=== PATIENT | female | born 1975 | race Caucasian/White ===

== ENCOUNTER 2016-11-16 12:16 | Emergency (ER) | payer OTHER ==
[2016-11-16 12:29] VITALS: BP 113/79; PULSE 90; TEMP 99.1; BMI 29.7
--- NOTE | 2016-11-16 12:38 | PDOC ---
History of Present Illness - General Chief Complaint: Cold Symptoms Stated Complaint: sore throat Time Seen by Provider: 11/16/16 12:29 History Source: Patient Exam Limitations: No Limitations - History of Present Illness Initial Comments: 11/16/16 12:35 41 y/o female with cough, congestion for 2 days. Sore throat as well, after getting a B12 shot in her doctor's office 2 days ago. No fever or chills. No SOB or traveling. Some chest pain with coughing. No leg pain. Taking OTC medications that are not working. Hx of asthma, but not bothering her at this time. Timing/Duration: reports: intermittent Severity: reports: mild Associated Symptoms: reports: chest pain/soreness, cough, nasal congestion, sore throat. denies: fever/chills, headache, nasal drainage, shortness of breath, sinus infection Past History - Past Medical History Allergies/Adverse Reactions: Allergies Allergy/AdvReac Type Severity Reaction Status Date / Time No Known Allergies Allergy Verified 11/16/16 12:22 Home Medications: Ambulatory Orders Levothyroxine [Synthroid -] 125 mcg PO DAILY 10/03/15 Azithromycin [Zithromax -] 250 mg PO UTDICT #6 tab 11/16/16 Cyclobenzaprine HCl [Flexeril 10 mg] 10 mg PO DAILY PRN 11/16/16 Asthma: Yes Psychiatric Problems: Yes (ANXIETY.) Thyroid Disease: Yes - Surgical History Abdominal Surgery: Yes Cholecystectomy: Yes - Family Disease History Family Disease History: Diabetes: Father - Psycho/Social/Smoking Cessation Hx Anxiety: Yes Suicidal Ideation: No Smoking History: Former smoker Have you smoked in the past 12 months: No Number of Cigarettes Smoked Daily: 3 If you are a former smoker, when did you quit?: 2 YRS AGO Hx Alcohol Use: Yes (SOCIAL) Drug/Substance Use Hx: No Substance Use Type: None Review of Systems - Review of Systems Able to Perform ROS?: Yes Is the patient limited Syrian proficient: No Constitutional: No: Chills, Fever HEENTM: Yes: Throat Pain. No: Difficulty Swallowing Respiratory: Yes: Cough. No: Shortness of Breath Cardiac (ROS): Yes: Chest Pain. No: Palpitations ABD/GI: No: Nausea, Vomiting Neurological: No: Headache Psychiatric: No: Anxiety All Other Systems: Reviewed and Negative *Physical Exam - Vital Signs Last Vital Signs Temp Pulse Resp BP Pulse Ox 99.1 F 90 18 113/79 98 11/16/16 12:16 11/16/16 12:16 11/16/16 12:16 11/16/16 12:16 11/16/16 12:16 - Physical Exam General Appearance: Yes: Nourished, Appropriately Dressed. No: Apparent Distress HEENT: positive: EOMI, IRWIN, Normal ENT Inspection, Normal Voice. negative: Pharynx Normal (mild erythema of pharynx, no exudates noted) Neck: positive: Trachea midline, Normal Thyroid, Supple. negative: Tender, Rigid, Carotid bruit Respiratory/Chest: positive: Lungs Clear, Normal Breath Sounds. negative: Chest Tender (non reproducible chest pain on palpation), Respiratory Distress Cardiovascular: positive: Regular Rhythm, Regular Rate, S1, S2. negative: Edema , JVD, Murmur Vascular Pulses: Femoral (R): 4+, Femoral (L): 4+, Carotid (R): 4+, Carotid (L) : 4+, Dorsalis-Pedis (R): 4+, Doralis-Pedis (L): 4+ Gastrointestinal/Abdominal: positive: Normal Bowel Sounds, Flat, Soft. negative : Tender, Organomegaly, Pulsatile Mass Lymphatic: negative: Adenopathy, Tenderness, Other Musculoskeletal: positive: Normal Inspection. negative: CVA Tenderness Extremity: positive: Normal Capillary Refill, Normal Inspection, Normal Range of Motion. 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 Will check EKG and discharge home on Z-pack Patient is in agreement with plan EKG NSR *DC/Admit/Observation/Transfer Diagnosis at time of Disposition: Acute costochondritis Upper respiratory tract infection Qualifiers: URI type: unspecified viral URI Qualified Code(s): J06.9 - Acute upper respiratory infection, unspecified; B97.89 - Other viral agents as the cause of diseases classified elsewhere - Discharge Dispostion Disposition: HOME Condition at time of disposition: Good Admit: No - Patient Instructions Printed Discharge Instructions: Acute Bronchitis, DI for Costochondritis Additional Instructions: Motrin, rest, Robitussin as needed Continue inhaler for asthma as needed Z-pack as directed If worsen return to ER
--- NOTE | 2016-11-17 18:18 | EKG ---
Test Reason : Blood Pressure : / mmHG Vent. Rate : 085 BPM Atrial Rate : 085 BPM P-R Int : 168 ms QRS Dur : 096 ms QT Int : 348 ms P-R-T Axes : 066 063 058 degrees QTc Int : 414 ms NORMAL SINUS RHYTHM WHEN COMPARED WITH ECG OF 03-OCT-2015 12:01, NO SIGNIFICANT CHANGE WAS FOUND Confirmed by MD DOW MARJORY ([id number]) on 11/17/2016 6:18:01 PM Referred By: JODEE OWEN Confirmed By:GADIEL DOW MD
== END 2016-11-16 13:00 | disposition home or self-care (01) ==
LOC: FER 12:16
DX: J06.9 Acute upper respiratory infection, unspecified (principal); B97.89 Other viral agents as the cause of diseases classified elsewhere; M94.0 Chondrocostal junction syndrome [Tietze]; J45.909 Unspecified asthma, uncomplicated; F41.9 Anxiety disorder, unspecified; E07.9 Disorder of thyroid, unspecified; Z87.891 Personal history of nicotine dependence
CPT/HCPCS: 93005; 99284-25

== ENCOUNTER 2017-12-14 13:48 | Emergency (ER) | payer OTHER ==
[2017-12-14] MEDS ORDERED: SODIUM CHLORIDE 1,000 ML IV STA (13:55)
[2017-12-14] MEDS ORDERED: ONDANSETRON 4 MG/2 ML VIAL IVPUSH ONE (13:55)
[2017-12-14] MEDS ORDERED: FAMOTIDINE 20 MG/50 ML IVPB 20 MG/50 ML MG IVPB ONE ×2 (14:09→14:49)
[2017-12-14] MEDS ORDERED: MAG HYDROX/AL HYDROX/SIMETH 30 ML UNIT-DOSE CUP PO ONE (14:09)
[2017-12-14] MEDS ORDERED: ACETAMINOPHEN 325 MG TABLET (FP) PO ONE (14:12)
--- NOTE | 2017-12-14 14:18 | PDOC ---
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 In her usual state of health this morning, ate breakfast and took her morning meds (synthroid, pepcid). While at work, c/o sharp left sided abdominal pain f/ b anxiety, hyperventilating, feeling flushed and sweaty, numbness to legs, where episode lasted 10 minutes, since resolved; no syncope. +nausea and NBNB emesis, loose nonbloody stools prior to episode. No fevers or chills, cp or sob , cough, weakness, urinary sx, urgency/frequency, back or flank pain, leg swelling. Denies , LMP 3 weeks ago and normal. No ETOH or tobacco use; +cannibis daily. Last EGD/colonoscopy in September 2017, awaiting to be seen by GI next week for appointment as followup. no changes or new medications. no chronic nsaid use. GI: Dr. Ventura - appointment early next week for followup; similar episodes of left sided abdominal pain, awaiting results of EGD/colonoscopy. 12/14/17 14:55 12/14/17 14:56 Past History - Past Medical History Allergies/Adverse Reactions: Allergies Allergy/AdvReac Type Severity Reaction Status Date / Time No Known Allergies Allergy Verified 12/14/17 13:49 Home Medications: Ambulatory Orders Levothyroxine [Synthroid -] 125 mcg PO DAILY 10/03/15 Cyclobenzaprine HCl [Flexeril 10 mg] 10 mg PO DAILY PRN 11/16/16 Albuterol Sulfate Inhaler - [Ventolin HFA Inhaler -] 1 - 2 inh PO PRN PRN Famotidine [Pepcid] 20 mg PO DAILY 12/14/17 Ondansetron [Zofran Odt -] 4 mg SL TID PRN #9 od.tablet 12/14/17 Asthma: Yes Psychiatric Problems: Yes (ANXIETY.) Thyroid Disease: Yes - Surgical History Abdominal Surgery: Yes Cholecystectomy: Yes - Family Disease History Family Disease History: Diabetes: Father - Suicide/Smoking/Psychosocial Hx Smoking History: Former smoker Have you smoked in the past 12 months: No Number of Cigarettes Smoked Daily: 3 If you are a former smoker, when did you quit?: 2 YRS AGO Hx Alcohol Use: Yes (SOCIAL) Drug/Substance Use Hx: No Substance Use Type: None Abd/GI Specific PMHX - Complaint Specific PMHX Colitis: No Diverticulitis: No Gall Bladder Disease: Yes (cholecystectomy) GERD: Yes Review of Systems - Review of Systems Able to Perform ROS?: Yes Comments:: 12/14/17 14:56 GENERAL/CONSTITUTIONAL: No fever or chills. No weakness. + sweats. HEAD, EYES, EARS, NOSE AND THROAT: No change in vision or hearing. No ear pain or discharge. No sore throat or mouth pain. No difficulty swallowing.. No congestion. CARDIOVASCULAR: No chest pain or palpitations, syncope or edema. RESPIRATORY: No SOB, cough, wheezing, or hemoptysis. GASTROINTESTINAL +abdominal pain, + nausea/vomiting. +loose stools. No constipation. No bloody stools. GENITOURINARY: No hematuria, dysuria, frequency, urgency or other changes. MUSCULOSKELETAL: No joint or muscle swelling or pain. No neck or back pain. SKIN: No rash or changes in skin color or lesions. NEUROLOGIC: No headache, vertigo, loss of consciousness, or change in strength, no weakness. +leg numbness bilaterally ENDOCRINE: No increased thirst. No appetite change HEMATOLOGIC/LYMPHATIC: No anemia, easy bruising/bleeding, or history of blood clots. ALLERGIC/IMMUNOLOGIC: No allergies or skin changes. All other systems reviewed and negative, or as documented in HPI. *Physical Exam - Physical Exam Comments: 12/14/17 14:59 General: Well appearing, awake and alert, NAD. HEENT: NCAT, PERRL, EOMI, clear conjunctiva, anicteric, moist mucus membranes, clear oropharynx, no oral lesions.. Neck: neck supple, FROM Chest: no chest wall tenderness Lungs: CTAB, normal and even respirations, no respiratory distress Heart: RRR, no murmurs, 2+ peripheral pulses throughout, no peripheral edema Abdomen: soft, normal inspection, +LUQ tenderness, no peritoneal signs. No CVAT Back: nontender, normal inspection and ROM MSK: no edema, CASANOVA x4, ROM intact. normal bulk and tone. Neuro: alert, oriented appropriately; no focal neurologic deficits. Skin: warm and well perfused, cap refill <2 sec, normal color ED Treatment Course - LABORATORY CBC & Chemistry Diagram: 12/14/17 14:44 12/14/17 14:44 Medical Decision Making - Medical Decision Making 12/14/17 15:00 42 YOF with h/o GERD and hypothyroid, presenting with LUQ pain, since resolving today. DDx abdominal pain: GERD, PUD, esophageal spasm, pancreatitis, hepatitis, constipation, colitis, gastroenteritis, UTI, pyelonephritis,, hernia, appendicitis, diverticulitis, . Considered but clinically doubt based on HPI and PE: no urinary sx to suggest renal colic or UTI, so defer UA testing. Vital signs reviewed, wnl. no fever. Plan: CBC, CMP, Upreg CXR; interventions: mylanta, pepcid, tylenol, IVF, zofran. Prior notes reviewed, including admissions, discharges and consultations. laboratory results and imaging reviewed, basic labs and lytes wnl, notable for normal LFTs, pending lipase, Upreg neg. clinically improved, well appearing, nontoxic, tolerating PO intake. +appetite and hungry, eager for discharge. questions answered, reassurance provided, instructions as below. Pt to be discharged in stable condition. Patient and family made aware of impression and plan, return precautions discussed (including but not limited to worsening pain or symptoms), fevers, or signs of infection, chest pain, respiratory distress, inability to tolerate oral intake, dehydration, syncope, or neurologic changes). Follow up with PMD and/or specialist as recommended, follow up information provided - Dr. Ventura next Sunday for follow up appt s/p EGD/colonoscopy, take medications as instructed for duration of time, rx zofran PRN for nausea, c/w pepcid and OTC mylanta/maalox.. continue with supportive care, avoid triggers and precipitants. 12/14/17 16:00 12/14/17 16:45 *DC/Admit/Observation/Transfer Diagnosis at time of Disposition: Abdominal pain Qualifiers: Abdominal location: left upper quadrant Qualified Code(s): R10.12 - Left upper quadrant pain - Discharge Dispostion Disposition: HOME Condition at time of disposition: Improved Decision to Admit order: No - Prescriptions Prescriptions: Ondansetron [Zofran Odt -] 4 mg SL TID PRN #9 od.tablet PRN Reason: Nausea - Referrals Referrals: Jose Ventura MD [Staff Physician] - - Patient Instructions Printed Discharge Instructions: DI for Abdominal Pain-Adult Additional Instructions: take zofran as needed for your nausea, three times a day. continue with pepcid. mylanta or maalox every 6 hours with food. follow up with Dr. Ventura as scheduled next week for your followup, your blood work reviewed and generally within normal results. return precautions for worsening symptoms including fevers, headache, vomiting, visual or hearing disturbances, abdominal pain, chest pain, shortness of breath, syncope, dehydration, inability to take things by mouth, altered mental status, or worsening concerning symptoms. - Post Discharge Activity Forms/Work/School Notes: Back to Work
[2017-12-14 14:43] VITALS: BP 112/79; PULSE 89; TEMP 98; BMI 29.6
[2017-12-14] MEDS ORDERED: ACETAMINOPHEN 325 MG TABLET (FP) ONE (14:48)
[2017-12-14] MEDS ORDERED: ONDANSETRON 4 MG/2 ML VIAL ONE (14:49)
[2017-12-14] MEDS ORDERED: MAG HYDROX/AL HYDROX/SIMETH 30 ML UNIT-DOSE CUP ONE (14:49)
[2017-12-14 15:27] LABS: BASO % 0.1 % (0-2.0); EOS % 0.6 % (0-4.5); HEMATOCRIT 40.7 % (32.4-45.2); HEMOGLOBIN 13.8 GM/dl (10.7-15.3); LYMPH % 11.4 % (8-40); MCH 30.7 pg (25.7-33.7); MCHC 33.9 g/dl (32.0-36.0); MEAN CELL VOLUME 90.5 fl (80-96); NEUT % 83.9 % (42.8-82.8); PLATELET COUNT 299 K/MM3 (134-434); RDW 12.7 % (11.6-15.6); WHITE BLOOD COUNT 7.8 K/mm3 (4.0-10.8)
[2017-12-14 15:34] LABS: ALBUMIN 3.9 g/dl (3.5-5.0); ALK PHOS 61 U/L (32-92); ANION GAP 6 (8-16); BILIRUBIN,TOTAL 0.6 mg/dl (0.2-1.0); BLOOD UREA NITROGEN 16 mg/dl (7-18); CALCIUM 9.1 mg/dl (8.4-10.2); CHLORIDE 104 mmol/L (98-107); CO2 24 mmol/L (22-28); CREATININE 0.8 mg/dl (0.6-1.3); GLUCOSE,RANDOM 89 mg/dl (74-106); POTASSIUM 4.1 mmol/L (3.5-5.1); SGOT/AST 21 U/L (10-42); SGPT/ALT 16 U/L (10-40); SODIUM 134 mmol/L (136-145); TOT PROT 6.6 g/dl (6.4-8.3)
[2017-12-14 16:42] LABS: LIPASE 137 U/L (73-393)
== END 2017-12-14 16:30 | disposition home or self-care (01) ==
LOC: FER 13:48
PROC: 3E033GC Introduction of Other Therapeutic Substance into Peripheral Vein, Percutaneous Approach (ICD-10-PCS; principal; 2017-12-14)
PROC: 3E0337Z Introduction of Electrolytic and Water Balance Substance into Peripheral Vein, Percutaneous Approach (ICD-10-PCS; 2017-12-14)
DX: R10.12 Left upper quadrant pain (principal); E03.9 Hypothyroidism, unspecified; K21.9 Gastro-esophageal reflux disease without esophagitis; J45.909 Unspecified asthma, uncomplicated; Z87.891 Personal history of nicotine dependence
CPT/HCPCS: 36415; 71045-TC-FY; 80053; 83690; 84703; 85025; 96361; 96365; 96375; 99283-25; J7030

== ENCOUNTER 2018-07-25 13:10 | Emergency (ER) | payer OTHER ==
--- NOTE | 2018-07-25 13:13 | PDOC ---
History of Present Illness <PamelaAlana - Last Filed: 07/25/18 16:42> - General History Source: Patient Exam Limitations: No Limitations - History of Present Illness Initial Comments: 07/25/18 13:36 42 year old female with PMH hypothyroidism, GERD presented to ED for right flank pain x5 days and periumbilical pain xtoday. Pt stated her right flank pain radiates down to her right groin, intermittent, stabbing. Pt stated her umbilical pain is constant. Pt denied fever, chills, nausea, vomiting, diarrhea , constipation, chest pain, shortness of breath. Pt was seen by her PCP And OBGYN Sunday for flank pain, had bilateral kidney US performed and was told it was normal, had UA done but has not had results. Allergies: NKDA Surgeries: cholecystectomy <KylieMaria - Last Filed: 07/25/18 16:50> - General Chief Complaint: Pain Stated Complaint: RT SIDE, ABD PAIN Time Seen by Provider: 07/25/18 13:13 Past History <Alana Santiago - Last Filed: 07/25/18 16:42> - Past Medical History Asthma: Yes COPD: No GI Disorders: Yes (H/O ACID REFLUX) Psychiatric Problems: Yes (ANXIETY.) Thyroid Disease: Yes - Surgical History Abdominal Surgery: Yes Cholecystectomy: Yes - Family Disease History Family Disease History: Diabetes: Father - Suicide/Smoking/Psychosocial Hx Smoking History: Former smoker Have you smoked in the past 12 months: No Number of Cigarettes Smoked Daily: 3 If you are a former smoker, when did you quit?: 2 YRS AGO Hx Alcohol Use: Yes (SOCIAL) Drug/Substance Use Hx: No Substance Use Type: None <KylieMaria - Last Filed: 07/25/18 16:50> - Past Medical History Allergies/Adverse Reactions: Allergies Allergy/AdvReac Type Severity Reaction Status Date / Time No Known Allergies Allergy Verified 07/25/18 13:13 Home Medications: Ambulatory Orders Levothyroxine [Synthroid -] 125 mcg PO DAILY 10/03/15 Cyclobenzaprine HCl [Flexeril 10 mg] 10 mg PO DAILY PRN 11/16/16 Famotidine [Pepcid] 20 mg PO DAILY 12/14/17 Review of Systems - Review of Systems Able to Perform ROS?: Yes Comments:: 07/25/18 13:37 General: denied fever, chills, night sweats, generalized weakness. HEENT: denied sore throat, rhinorrhea, ear pain. Heart: denied chest pain, palpitations, syncope, diaphoresis. Respiratory: denied shortness of breath, cough, sputum production, hemoptysis. Abdomen: admitted to abdominal pain. denied nausea, vomiting, diarrhea, constipation, blood in stool. : admitted to flank pain. denied dysuria, increased urinary frequency, hematuria, urinary incontinence. Back: denied back pain. Musculoskeletal: denied joint pain, muscle pain, joint swelling. Neurological: denied headache, dizziness, numbness, tingling, weakness. Skin: denied rash, laceration, abrasion. <Maria Espinal - Last Filed: 07/25/18 16:50> *Physical Exam - Vital Signs Last Vital Signs Temp Pulse Resp BP Pulse Ox 98.6 F 98 H 18 119/88 100 07/25/18 13:10 07/25/18 13:10 07/25/18 13:10 07/25/18 13:10 07/25/18 13:10 <Alana Santiago - Last Filed: 07/25/18 16:42> - Physical Exam Comments: 07/25/18 13:38 Constitutional: Well-nourished, Well-developed, appearing stated age. HEENT: head is normocephalic, atraumatic. EOMI. PERRLA. Neck: supple. Full ROM. Heart: regular rhythm. no murmurs, rubs or gallops. Lungs: clear to auscultation bilaterally. no crackles, rhonchi or wheezing. no stridor. Abdomen: soft, flat. mcburney's point nontender. tenderness to palpation of epigastrium, LUQ, LLQ. normal bowel sounds. no rebound, guarding, masses. Extremities: Peripheral pulses intact. No lower extremity edema. Neurological: CN 2-12 grossly intact. Moves all four extremities. Psych: awake, alert, oriented x3. Follows commands. Answers questions appropriately. <Maria Espinal - Last Filed: 07/25/18 16:50> Moderate Sedation - Procedure Monitoring Vital Signs: Procedure Monitoring Vital Signs Temperature 98.6 F 07/25/18 13:10 Pulse Rate 98 H 07/25/18 13:10 Respiratory Rate 18 07/25/18 13:10 Blood Pressure 119/88 07/25/18 13:10 O2 Sat by Pulse Oximetry (%) 100 07/25/18 13:10 <Alana Santiago - Last Filed: 07/25/18 16:42> ED Treatment Course - LABORATORY CBC & Chemistry Diagram: 07/25/18 13:39 07/25/18 13:39 - ADDITIONAL ORDERS Additional order review: Laboratory Results 07/25/18 07/25/18 07/25/18 13:47 13:47 13:39 Sodium 137 Potassium 3.9 Chloride 111 H Carbon Dioxide 23 Anion Gap 3 L BUN 13 Creatinine 0.7 Creat Clearance w eGFR > 60 Random Glucose 101 Calcium 8.8 Total Bilirubin 0.3 AST 23 ALT 18 Alkaline Phosphatase 73 Total Protein 6.8 Albumin 3.7 Urine Color Yellow Urine Appearance Cloudy Urine pH 5.5 Ur Specific [place] 1.010 Urine Protein Negative Urine Glucose (UA) Negative Urine Ketones Negative Urine Blood 3+ H Urine Nitrite Negative Urine Bilirubin Negative Urine Urobilinogen 0.2 Ur Leukocyte Esterase Negative Urine RBC 10-20 Urine WBC 0-2 Ur Epithelial Cells 1+ Urine HCG, Qual Negative 07/25/18 13:39 RBC 4.65 MCV 91.9 MCHC 32.5 RDW 12.1 MPV 8.0 Neutrophils % 66.4 Lymphocytes % 25.4 Monocytes % 6.5 Eosinophils % 1.5 Basophils % 0.2 - Medications Given in the ED: ED Medications Discontinued Medications Generic Name Dose Route Start Last Admin Trade Name Maribell PRN Reason Stop Dose Admin Ketorolac Tromethamine 30 mg 07/25/18 14:47 07/25/18 15:12 Toradol Injection - IVPUSH 07/25/18 14:48 30 mg ONCE ONE Administration <Alana Santiago - Last Filed: 07/25/18 16:42> - LABORATORY CBC & Chemistry Diagram: 07/25/18 13:39 07/25/18 13:39 <Maria Espinal - Last Filed: 07/25/18 16:50> Medical Decision Making - Medical Decision Making 07/25/18 13:39 42 year old female with above PMH presented to ED for right flank pain and periumbilical pain. Initial Vital Signs Temp Pulse Resp BP Pulse Ox 98.6 F 98 H 18 119/88 100 07/25/18 13:10 07/25/18 13:10 07/25/18 13:10 07/25/18 13:10 07/25/18 13:10 Afebrile. No tachycardia. No tachypnea. No hypotension. No hypoxia on room air. Labs ordered: CBC, CMP, lipase, UA/UC, urine testing Imaging ordered: CT abdomen/pelvis with contrast Medications ordered: none EKG performed at 1407: rate 73, regular rhythm, normal axis, normal intervals, no acute ST changes. 07/25/18 14:46 CBC WBC 6.5 K/mm3 (4.0-10.8) 07/25/18 13:39 RBC 4.65 M/mm3 (3.60-5.2) 07/25/18 13:39 Hgb 13.9 GM/dl (10.7-15.3) 07/25/18 13:39 Hct 42.8 % (32.4-45.2) 07/25/18 13:39 MCV 91.9 fl (80-96) 07/25/18 13:39 MCH 29.8 pg (25.7-33.7) 07/25/18 13:39 MCHC 32.5 g/dl (32.0-36.0) 07/25/18 13:39 RDW 12.1 % (11.6-15.6) 07/25/18 13:39 Plt Count 314 K/MM3 (134-434) 07/25/18 13:39 MPV 8.0 fl (7.5-11.1) 07/25/18 13:39 Absolute Neuts (auto) 4.3 K/mm3 07/25/18 13:39 Neutrophils % 66.4 % (42.8-82.8) 07/25/18 13:39 Lymphocytes % 25.4 % (8-40) 07/25/18 13:39 Monocytes % 6.5 % (3.8-10.2) 07/25/18 13:39 Eosinophils % 1.5 % (0-4.5) 07/25/18 13:39 Basophils % 0.2 % (0-2.0) 07/25/18 13:39 No leukocytosis. No anemia. Urine Test Results Urine Color Yellow 07/25/18 13:47 Urine Appearance Cloudy 07/25/18 13:47 Urine pH 5.5 (4.5-8) 07/25/18 13:47 Ur Specific [place] 1.010 (1.010-1.035) 07/25/18 13:47 Urine Protein Negative (NEGATIVE) 07/25/18 13:47 Urine Glucose (UA) Negative (NEGATIVE) 07/25/18 13:47 Urine Ketones Negative (NEGATIVE) 07/25/18 13:47 Urine Blood 3+ (NEGATIVE) H 07/25/18 13:47 Urine Nitrite Negative (NEGATIVE) 07/25/18 13:47 Urine Bilirubin Negative (NEGATIVE) 07/25/18 13:47 Ur Leukocyte Esterase Negative (NEGATIVE) 07/25/18 13:47 3+ blood. - Possible kidney stone No evidence of UTI. Urine testing negative. - Toradol 30 mg IV ordered CMP Sodium 137 mmol/L (136-145) 07/25/18 13:39 Potassium 3.9 mmol/L (3.5-5.1) 07/25/18 13:39 Chloride 111 mmol/L (98-107) H 07/25/18 13:39 Carbon Dioxide 23 mmol/L (21-32) 07/25/18 13:39 Anion Gap 3 MMOL/L (8-16) L 07/25/18 13:39 BUN 13 mg/dl (7-18) 07/25/18 13:39 Creatinine 0.7 mg/dl (0.55-1.3) 07/25/18 13:39 Creat Clearance w eGFR > 60 (>60) 07/25/18 13:39 Random Glucose 101 mg/dl (74-106) 07/25/18 13:39 Calcium 8.8 mg/dl (8.5-10) 07/25/18 13:39 Total Bilirubin 0.3 mg/dl (0.2-1) 07/25/18 13:39 AST 23 U/L (15-37) 07/25/18 13:39 ALT 18 U/L (13-61) 07/25/18 13:39 Alkaline Phosphatase 73 U/L (45-117) 07/25/18 13:39 Total Protein 6.8 g/dl (6.4-8.2) 07/25/18 13:39 Albumin 3.7 g/dl (3.4-5.0) 07/25/18 13:39 No electrolyte abnormalities. No TIMOTHY. No transaminitis. 07/25/18 16:48 CT abdomen/pelvis negative for acute pathology, chronic degenerative spine changes noted. Results explained to patient and copy of report handed to patient. Pt informed to follow up with PCP/GI. Pt discharged. <Maria Espinal - Last Filed: 07/25/18 16:50> *DC/Admit/Observation/Transfer - Discharge Dispostion Decision to Admit order: No <Alana Santiago - Last Filed: 07/25/18 16:42> - Discharge Dispostion Decision to Admit order: No <Maria Espinal - Last Filed: 07/25/18 16:50> Diagnosis at time of Disposition: Flank pain Abdominal pain Qualifiers: Abdominal location: lower abdomen, unspecified Qualified Code(s): R10.30 - Lower abdominal pain, unspecified - Discharge Dispostion Disposition: HOME Condition at time of disposition: Stable - Referrals Referrals: Festus Quiroz [Primary Care Provider] - - Patient Instructions Printed Discharge Instructions: DI for Abdominal Pain-Adult Additional Instructions: You came to the ED for pain in your flank and your abdomen. Your blood work and cat scan did not show the cause of your pain. It is safe for you to go home , but you should return to the ED for worsening pain, pain with fever, severe nausea and vomiting, bloody vomit or stool, other new or worsening symptoms. Make sure that you call your primary care doctor and industrial relations director for follow up tomorrow. - Post Discharge Activity Forms/Work/School Notes: Back to Work
[2018-07-25 13:20] VITALS: TEMP 98.6; BMI 29.6
[2018-07-25 14:06] LABS: ALBUMIN 3.7 g/dl (3.4-5.0); ALK PHOS 73 U/L (45-117); ANION GAP 3 MMOL/L (8-16); BILIRUBIN,TOTAL 0.3 mg/dl (0.2-1); BLOOD UREA NITROGEN 13 mg/dl (7-18); CHLORIDE 111 mmol/L (98-107); CO2 23 mmol/L (21-32); CREATININE 0.7 mg/dl (0.55-1.3); GLUCOSE,RANDOM 101 mg/dl (74-106); POTASSIUM 3.9 mmol/L (3.5-5.1); SGOT/AST 23 U/L (15-37); SGPT/ALT 18 U/L (13-61); SODIUM 137 mmol/L (136-145); TOT PROT 6.8 g/dl (6.4-8.2)
[2018-07-25 14:09] LABS: BASO % 0.2 % (0-2.0); EOS % 1.5 % (0-4.5); HEMATOCRIT 42.8 % (32.4-45.2); HEMOGLOBIN 13.9 GM/dl (10.7-15.3); LYMPH % 25.4 % (8-40); MCH 29.8 pg (25.7-33.7); MCHC 32.5 g/dl (32.0-36.0); MEAN CELL VOLUME 91.9 fl (80-96); MONO % 6.5 % (3.8-10.2); NEUT % 66.4 % (42.8-82.8); PLATELET COUNT 314 K/MM3 (134-434); RBC 4.65 M/mm3 (3.60-5.2); RDW 12.1 % (11.6-15.6); WHITE BLOOD COUNT 6.5 K/mm3 (4.0-10.8)
[2018-07-25 14:32] LABS: PH,URINE 5.5 (4.5-8); URINE APPEARANCE CLOUDY; URINE BILIRUBIN NEGATIVE (NEGATIVE); URINE COLOR YELLOW; URINE GLUCOSE (UA) NEGATIVE (NEGATIVE); URINE KETONE NEGATIVE (NEGATIVE); URINE LEUK ESTERASE NEGATIVE (NEGATIVE); URINE NITRITE NEGATIVE (NEGATIVE); URINE PROTEIN NEGATIVE (NEGATIVE); URINE UROBILINOGEN 0.2 (0.2-1.0)
[2018-07-25 14:39] LABS: CALCIUM 8.8 mg/dl (8.5-10)
[2018-07-25] MEDS ORDERED: KETOROLAC TROMETHAMINE 30 MG/1 ML VIAL IVPUSH ONE (14:47)
[2018-07-25] MEDS ORDERED: KETOROLAC TROMETHAMINE 30 MG/1 ML VIAL ONE (15:09)
--- NOTE | 2018-07-25 15:12 | PDOC ---
Attending Attestation - Resident Resident Name: Maria Espinal - HPI HPI: 07/25/18 15:13 Pt presents to the ED complaining of R flank pain and periumbilical pain for the last 5 days. has been evaluated by PCP and [employer] for the same complaint with negative renal US. Denies fever, nausea or vomiting, denies dysuria. 07/25/18 15:13 07/27/18 20:13 07/27/18 20:13 07/27/18 20:38 - Physicial Exam PE: 07/27/18 20:39 Agree with resident exam. Patient is alert and oriented and in no acute distress. Abdomen is soft, non distended, with mid diffuse tenderness to deep palpation. 07/27/18 20:42 - Medical Decision Making 07/27/18 20:43 Pt presents to the ED complaining of abdominal pain. Differential includes UTI , diverticulitis or other intestinal pathology, nephrolithiasis, less likely appendicitis. Will check labs and CT abdomen pelvis to rule out intraabdominal pathology.
[2018-07-25 15:22] LABS: EPI CELLS 1+ /HPF; URINE WBC 0-2 (0-5)
[2018-07-25 17:10] VITALS: BP 119/87; PULSE 77
[2018-07-25 18:39] LABS: LIPASE 146 U/L (73-393)
--- NOTE | 2018-07-26 10:13 | EKG ---
Test Reason : Blood Pressure : / mmHG Vent. Rate : 073 BPM Atrial Rate : 073 BPM P-R Int : 170 ms QRS Dur : 098 ms QT Int : 358 ms P-R-T Axes : 063 038 038 degrees QTc Int : 394 ms NORMAL SINUS RHYTHM NORMAL ECG WHEN COMPARED WITH ECG OF 16-NOV-2016 12:37, NO SIGNIFICANT CHANGE WAS FOUND Confirmed by CARMEN CARDENAS MD ([id number]) on 07/26/2018 10:13:10 AM Referred By: MILLICENT BOWERS Confirmed By:CARMEN CARDENAS MD
== END 2018-07-25 17:10 | disposition home or self-care (01) ==
LOC: FER 13:10
PROC: 3E0333Z Introduction of Anti-inflammatory into Peripheral Vein, Percutaneous Approach (ICD-10-PCS; principal; 2018-07-25)
DX: R10.31 Right lower quadrant pain (principal); R10.30 Lower abdominal pain, unspecified; K21.9 Gastro-esophageal reflux disease without esophagitis; E07.9 Disorder of thyroid, unspecified
CPT/HCPCS: 36415; 74177-TC; 80053; 81003; 81015; 83690; 84703; 85025; 87086; 93005; 99285-25

== ENCOUNTER 2021-03-21 14:44 | Emergency (ER) | payer OTHER ==
[2021-03-21 15:00] VITALS: BP 138/90; PULSE 81; TEMP 99.6; BMI 30.4
[2021-03-21] MEDS ORDERED: METHOCARBAMOL 500 MG TABLET PO ONE (15:32)
[2021-03-21] MEDS ORDERED: KETOROLAC TROMETHAMINE 60 MG/2 ML VIAL IM ONE (15:32)
[2021-03-21] MEDS ORDERED: METHOCARBAMOL 500 MG TABLET ONE (15:49)
[2021-03-21] MEDS ORDERED: KETOROLAC TROMETHAMINE 60 MG/2 ML VIAL ONE (15:49)
== END 2021-03-21 16:55 | disposition home or self-care (01) ==
LOC: FER 14:44
PROC: 3E0233Z Introduction of Anti-inflammatory into Muscle, Percutaneous Approach (ICD-10-PCS; principal; 2021-03-21)
DX: M54.6 Pain in thoracic spine (principal)
CPT/HCPCS: 96372; 99284-25

== ENCOUNTER 2022-08-20 11:42 | Emergency (ER) | payer OTHER ==
[2022-08-20 11:46] VITALS: BP 119/77; PULSE 73; RESP 18; TEMP 9.6; BMI 29.7
[2022-08-20] MEDS ORDERED: KETOROLAC TROMETHAMINE 30 MG/1 ML VIAL IM ONE (12:31)
[2022-08-20] MEDS ORDERED: LIDOCAINE 5% TOPICAL PATCH TP ONE (12:31)
[2022-08-20] MEDS ORDERED: KETOROLAC TROMETHAMINE 30 MG/1 ML VIAL ONE (12:38)
[2022-08-20] MEDS ORDERED: LIDOCAINE 5% TOPICAL PATCH ONE (12:38)
[2022-08-20] MEDS ORDERED: LIDOCAINE PATCH REMOVAL MC SCH (22:00)
== END 2022-08-20 12:57 | disposition home or self-care (01) ==
LOC: JERFT 11:42
PROC: 3E0233Z Introduction of Anti-inflammatory into Muscle, Percutaneous Approach (ICD-10-PCS; principal; 2022-08-20)
DX: M54.50 Low back pain, unspecified (principal)
CPT/HCPCS: 99284-25